=== PATIENT | female | born 1980 | race Caucasian/White ===

== ENCOUNTER 2017-12-23 11:59 | Inpatient (IN) | payer MEDICAID ==
[2017-12-23] MEDS ORDERED: AMPICILLIN 2 GM/NS (PMX) 100 ML (12:23)
[2017-12-23 12:48] LABS: ADD MAN DIFF? NO
[2017-12-23 12:52] LABS: WHITE BLOOD COUNT 8.6 10^3/ul (4.8-10.8)
[2017-12-23 12:52] LABS: BASOPHILS % 0.5 % (0.0-2.0); EOSINOPHILS # 0.1 10^3/ul (0.0-0.5); EOSINOPHILS % 0.6 % (0.0-7.0); HEMATOCRIT 37.6 % (37.0-47.0); HEMOGLOBIN 12.8 g/dl (12.0-16.0); LYMPHOCYTES # 1.6 10^3/ul (0.8-2.9); LYMPHOCYTES % 19.2 % (15.0-51.0); MEAN CORPUSCULAR HEMOGLOBIN 32.6 pg (29.0-33.0); MEAN CORPUSCULAR VOLUME 95.7 fl (82.0-101.0); MEAN PLATELET VOLUME 11.3 fl (7.4-10.4); MONOCYTE # 0.5 10^3/ul (0.3-0.9); MONOCYTES % 5.5 % (0.0-11.0); NEUTROPHIL # 6.3 10^3/ul (1.6-7.5); NEUTROPHILS % 73.5 % (39.0-77.0); PLATELET COUNT 197 10^3/UL (140-415); RED BLOOD COUNT 3.93 10^6/ul (4.20-5.40); RED CELL DISTRIBUTION WIDTH 13.8 % (11.5-14.5)
[2017-12-23] MEDS ORDERED: CARBOPROST 250 MCG INJ IM ×2 (13:00→16:00)
[2017-12-23] MEDS ORDERED: MISOPROSTOL 200 MCG TAB PR ×2 (13:00→16:00)
[2017-12-23] MEDS ORDERED: LIDOCAINE 1% (MPF) 30 ML INJ INJ (13:00)
[2017-12-23] MEDS ORDERED: IBUPROFEN 600 MG TAB PO (13:00)
[2017-12-23] MEDS ORDERED: OXYTOCIN 30 UNITS/LR 500 ML IV ×2 (13:00→16:00)
[2017-12-23] MEDS ORDERED: BUTORPHANOL 2 MG INJ IV (13:00)
[2017-12-23 13:12] LABS: INR 0.89; PROTIME 12.1 Sec (11.9-14.9); PT RATIO 0.9
[2017-12-23 13:13] LABS: PARTIAL THROMBOPLASTIN TIME 25.4 Sec (25.0-35.0)
[2017-12-23] MEDS: LACTATED RINGER'S 1,000 ML IV* ×5 (13:13→23:55)
[2017-12-23] MEDS: AMPICILLIN 2 GM/NS (PMX) 100 ML IV (13:13)
[2017-12-23] MEDS ORDERED: DIPHENHYDRAMINE 50 MG INJ IV ×2 (14:00→16:00)
[2017-12-23] MEDS ORDERED: HYDROmorphONE 0.5 MG/0.5 ML SYG IV ×2 (14:00)
[2017-12-23] MEDS ORDERED: FENTAnyl 2MCG/ML-ROPIV 0.2% 100 ML BAG EPI (14:00)
[2017-12-23] MEDS ORDERED: NALOXONE (0.4 MG/ML) INJ IV (14:00)
[2017-12-23] MEDS ORDERED: ONDANSETRON 4 MG INJ IV ×2 (14:00→16:00)
[2017-12-23] MEDS ORDERED: KETOROLAC 30 MG INJ IV (14:00)
[2017-12-23] MEDS ORDERED: ZOLPIDEM 5 MG TAB PO ×2 (14:00→16:00)
[2017-12-23 15:40] LABS: RAPID PLASMA REAGIN NONREACTIVE (NR)
[2017-12-23] MEDS: METHYLERGONOVINE 0.2 MG INJ IM (15:44)
[2017-12-23] MEDS: OXYTOCIN 30 UNITS/LR 500 ML IV ×2 (15:54→16:20)
[2017-12-23] MEDS: DEXTROSE 5%-LR 1,000 ML IV ×2 (15:55→23:55)
[2017-12-23] MEDS ORDERED: METHYLERGONOVINE 0.2 MG INJ IM (16:00)
[2017-12-23] MEDS ORDERED: ACETAMINOPHEN 325 MG TAB PO (16:00)
[2017-12-23] MEDS ORDERED: DIBUCAINE 1% 30 GM OINT PR (16:00)
[2017-12-23] MEDS ORDERED: SENNA/DOCUSATE NA (8.6MG/50MG) TAB PO (16:00)
[2017-12-23 16:54] LABS: HEPATITIS B SURFACE ANTIGEN NEGATIVE (NEGATIVE)
[2017-12-23] MEDS ORDERED: AMPICILLIN 1 GM/NS (PMX) 50 ML IV (17:00)
[2017-12-23 17:03] LABS: HIV 1&2 ANTIBODY NEGATIVE (NEGATIVE)
[2017-12-23] MEDS: WITCH HAZEL/GLYCERIN PAD PR (19:46)
[2017-12-23] MEDS: BENZOCAINE 20% 56 ML SPRAY TOP (19:46)
[2017-12-23] MEDS: LANOLIN 7 GM TUBE TOP (19:47)
[2017-12-23] MEDS: OXYCODONE/ASPIRIN (4.88/325) TAB PO (21:52)
[2017-12-24] MEDS: OXYCODONE/ASPIRIN (4.88/325) TAB PO ×2 (05:45→16:24)
[2017-12-24] MEDS: DEXTROSE 5%-LR 1,000 ML IV ×3 (07:37→23:55)
[2017-12-24] MEDS: LACTATED RINGER'S 1,000 ML IV* ×3 (07:37→23:55)
[2017-12-24 11:00] LABS: ADD MAN DIFF? NO; BASOPHILS % 0.5 % (0.0-2.0); EOSINOPHILS # 0.1 10^3/ul (0.0-0.5); HEMATOCRIT 32.4 % (37.0-47.0); HEMOGLOBIN 10.8 g/dl (12.0-16.0); LYMPHOCYTES # 1.6 10^3/ul (0.8-2.9); LYMPHOCYTES % 20.3 % (15.0-51.0); MEAN CORPUSCULAR HEMOGLOBIN 32.2 pg (29.0-33.0); MEAN CORPUSCULAR HGB CONC 33.3 g/dl (32.0-37.0); MEAN CORPUSCULAR VOLUME 96.7 fl (82.0-101.0); MEAN PLATELET VOLUME 10.8 fl (7.4-10.4); MONOCYTE # 0.4 10^3/ul (0.3-0.9); MONOCYTES % 5.3 % (0.0-11.0); NEUTROPHIL # 5.8 10^3/ul (1.6-7.5); NEUTROPHILS % 72.6 % (39.0-77.0); PLATELET COUNT 162 10^3/UL (140-415); RED BLOOD COUNT 3.35 10^6/ul (4.20-5.40); RED CELL DISTRIBUTION WIDTH 13.9 % (11.5-14.5)
[2017-12-24] MEDS: IBUPROFEN 600 MG TAB PO (18:30)
[2017-12-25] MEDS: IBUPROFEN 600 MG TAB PO ×3 (00:17→11:59)
[2017-12-25] MEDS: DEXTROSE 5%-LR 1,000 ML IV (06:28)
[2017-12-25] MEDS: LACTATED RINGER'S 1,000 ML IV* (06:29)
[2017-12-25] MEDS: DIPHTH/TET/ACEL PERTUSS (ADULT) 0.5 ML VIAL IM* (09:21)
[2017-12-25] MEDS: MEASLES,MUMPS,RUBELLA VACCINE INJ SC* (09:21)
[2017-12-25 10:41] LABS: RUBELLA ANTIBODY - IGG 1.28 index
[2017-12-25 13:02] LABS: RUBELLA ANTIBODY - IGM <20.00 AU/mL
== END 2017-12-25 12:55 | disposition home or self-care (01) | DRG 775 ==
LOC: OBT 11:59 → L-D 12:06 → OBT 12:23 → L-D 12:10 → PP1 18:29
PROVIDERS: Obstetrics & Gynecology
PROC: 10E0XZZ Delivery of Products of Conception, External Approach (ICD-10-PCS; principal; 2017-12-23)
DX: O80 Encounter for full-term uncomplicated delivery (principal); Z3A.37 37 weeks gestation of pregnancy; Z37.0 Single live birth
CPT/HCPCS: 62319; 76815; 85025; 85610; 85730; 86592; 86703; 86762; 86850; 86900; 86901; 87340